=== PATIENT | male | born 1965 | race Caucasian/White ===

== ENCOUNTER → 2017-01-14 | Outpatient (CLI) | payer OTHER ==
--- NOTE | 2017-01-14 11:55 | RADIOLOGY REPORT PS360 ---
ELBOW-RT-2 VIEWS CLINICAL INDICATION: Right elbow pain BURSITIS OF RT ELBOW ORDERING PHYSICIAN: Baudilio Davis MD PATIENT AGE: 51 years COMPARISON: None FINDINGS: No fracture or dislocation evident. There is a prominent enthesophyte at the olecranon with focal soft tissue swelling consistent with olecranon bursitis. IMPRESSION: Olecranon bursitis with prominent enthesophyte at the olecranon
== END ==
LOC: RAD 09:23
DX: M70.21 Olecranon bursitis, right elbow (principal)